=== PATIENT | female | born 2000 | race Caucasian/White ===

== ENCOUNTER 2020-05-26 09:56 | Outpatient (REF) | payer MEDICAID, SELFPAY | END 2020-05-26 09:57 | disposition home or self-care (01) | LOC: HO.LAB 09:56 | PROVIDERS: PCP Pediatrics; Visit Provider Internal Medicine | DX: Z20.828 Contact with and (suspected) exposure to other viral communicable diseases (principal) | CPT/HCPCS: 36415; C9803; U0003 ==

== ENCOUNTER 2020-11-30 12:55 | Emergency (ER) | payer MEDICAID, SELFPAY ==
[2020-11-30 13:36] VITALS: BP 134/77; PULSE 86; RESP 18; TEMP 36.7; O2SAT 99; BMI 16.7
[2020-11-30 15:01] LABS: Glucose Urine UA NEG (NEG); Leukocyte Esterase Urine NEG (NEG); Nitrite Urine NEG (NEG); PH 7.5 (5.0-8.0); Specific Gravity - Urine 1.015 (1.005-1.025); Urine Blood 3+ (NEG); Urine Ketones NEG (NEG); Urine Protein 1+ MG/DL (NEG-TRACE)
[2020-11-30 15:02] LABS: Appearance Urine HAZY; Color Urine YELLOW
[2020-11-30 15:03] LABS: UPreg QC Valid YES; Urine Pregnancy NEGATIVE (NEGATIVE)
[2020-11-30 15:09] LABS: Bacteria Urine TRACE /LPF; Squamous Epithelial Cell Urine TRACE /LPF; WBC Urine 0 /HPF (0-4)
--- NOTE | 2020-11-30 15:13 | ED.GENADULT ---
HPI - General Adult General Chief complaint: Abdominal Pain Stated complaint: Vomittig/Nausea/Dizziness Time Seen by Provider: 11/30/20 14:06 Source: patient Mode of arrival: ambulatory Limitations: no limitations History of Present Illness HPI narrative: 20-year-old female with nonsignificant past medical history presents to the emergency department with increased urinary frequency and low back pain over the last week. Patient denies any burning with urination but states she has been going to the bathroom almost every hour. Is currently on her. Denies any abnormal vaginal discharge denies any abdominal pain. Does admit to mild nausea but denies vomiting or diarrhea. Denies cough chest pain or shortness of breath. Due to concern she felt she needed to be seen. Related Data Allergies Allergy/AdvReac Type Severity Reaction Status Date / Time tree nut Allergy Severe Anaphylaxis Verified 11/30/20 13:35 Review of Systems Review of Systems: Constitutional : No Weight loss, No Fever, No Chills, No Night Sweats, No Fatigue, No Malaise ENT/Mouth : No Hearing loss, No Ear Pain, No Nasal Congestion, No Sinus Pain, No Hoarseness, No sore throat, No Rhinorrhea, No Swallowing Difficulty Eyes: No Eye Pain, No Swelling, No Redness, No Foreign Body, No Discharge, No Vision Changes Cardiovascular : No Chest Pain, No SOB, No Dyspnea on Exertion, No Orthopnea, No Edema, No Palpitations Respiratory : No Cough, No Sputum, No Wheezing, No Smoke Exposure, No Dyspnea Gastrointestinal : + Nausea, No Vomiting, No Diarrhea, No Constipation, No abdominal Pain, No Hematochezia, No Melena Genitourinary : no irregular bleeding, No Dysuria, + Urinary Frequency, No Hematuria, No Urinary Incontinence, No Urgency, No Flank Pain, No Urinary Flow Changes, No Hesitancy Musculoskeletal : No joint pain, No Myalgias, No Joint Swelling, + low back pain Skin : No Skin Lesions, No rash Neuro : No Weakness, No Numbness, No Paresthesias, No Loss of Consciousness, No Dizziness, No Headache Psych : No Anxiety/Panic, No Depression, No SI/HI/AH/VH, No Social Issues, Heme/Lymph: No Bruising, No Bleeding,No Lymphadenopathy Endocrine : No Polyuria, No Polydipsia, No Temperature Intolerance PMFSH Past Medical History Attestation statement: The following information was validated with the patient. Source: old records reviewed and obtained from family Social History Social History Advance Directives: No Advance Directives Information Provided: No Patient : No Physical Exam Vital Signs: Vital Signs: Last Vital Signs Temp 98.1 F 11/30/20 15:54 Pulse 61 11/30/20 15:54 Resp 16 11/30/20 15:54 BP 122/75 11/30/20 15:54 Pulse Ox 95 11/30/20 15:54 Body Mass Index 16.7 vital signs have been reviewed as normal and appeared to be correct. Blood pressure normal. Heart rate normal. Respiration rate normal. Temperature normal. Oxygen saturation normal. Appearance: Alert. Oriented X3. No acute distress. Head: Normal external exam. Normocephalic. Atraumatic. No Parker signs noted. No raccoon eyes noted Eyes: Conjunctiva and sclera normal. ENT: EAC normal. Moist mucous membranes. No drooling noted. No muffled voice noted. Neck: Normal inspection. Neck supple. FROM. No meningeal signs. CVS: Pulses normal throughout. Respiratory: No respiratory distress. Painless inspiration. No accessory muscle usage noted Abdomen: No visible injury noted. soft nondistended nontender Back: Full range of motion noted. no reproducible pain to palpation full range of motion no CVA tenderness Skin: Skin warm and dry. Normal skin color. Normal skin turgor. Extremities: No lower extremity edema. Extremities exhibit normal range of motion. Neuro: Oriented X 3. No motor deficit. No sensory deficit. Course Reevaluation(s) Reevaluation #1: Patient without signs of acute infection is not will discharge home with close outpatient follow-up and strict return precautions. Will obtain a POC glucose to ensure the absence of hyperglycemia that may be causing urinary frequency. Glucose of 80. as soon as patient saw her own blood she started to feel dizzy she tried to ambulate did not pass out sat on the ground. Will obtain EKG to ensure the absence of acute arrhythmia will repeat vitals feel that this is likely secondary to vasovagal secondary to seeing her own blood. Will provide [place] cold washcloth and continue to monitor pending discharge. EKG within normal limits, repeat labs normal. Patient tolerated PO, feel d/c is safe with close PCP FU. Medical Decision Making MDM Narrative Medical decision making narrative: patient's vital signs are stable and she is afebrile. Patient presenting to the emergency department with mild low back pain as well as urinary frequency over the last week concern for UTI. Patient has her period currently. \However will test for . Abdomen soft nondistended nontender no acute concern for intra-abdominal pathology. No flank pain no acute concern for renal stone. Patient denies any vaginal discharge or pain with intercourse no acute concern for STIs. Will continue to monitor pending UA patient is stable. Lab Data Labs: Lab Results 11/30/20 11/30/20 11/30/20 Range/Units 14:52 14:52 15:32 POC Glucose 80 (60-115) mg/dL Urine Color YELLOW Urine Appearance HAZY Urine pH 7.5 (5.0-8.0) Ur Specific [place] 1.015 (1.005-1.025) Urine Protein 1+ H (NEG-TRACE) MG/DL Urine Glucose (UA) NEG (NEG) MG/DL Urine Ketones NEG (NEG) MG/DL Urine Blood 3+ H (NEG) Urine Nitrite NEG (NEG) Ur Leukocyte Esterase NEG (NEG) Urine RBC 76-150 H (0) /HPF Urine WBC 0 (0-4) /HPF Ur Squamous Epith Cells TRACE /LPF Urine Bacteria TRACE /LPF Urine Test NEGATIVE (NEGATIVE) Discharge Plan Discharge Clinical Impression: Urinary frequency Patient Disposition: Home, Self-Care Instructions: Urinary Urgency and Frequency (DC) Additional Instructions: A urine sample was tested today and was normal no signs of infection you are not is uncertain what is causing her symptoms and important you continue to follow-up with your doctor. Interventions: ED Discharge Assessment Last Done: 11/30/20 16:32 Discharge Date/Time: 11/30/20 16:33 Print Language: Turkish
--- NOTE | 2020-11-30 15:44 | ECG_ITS ---
Test Reason : ALMOST PASS OUT Blood Pressure : / mmHG Vent. Rate : 052 BPM Atrial Rate : 052 BPM P-R Int : 138 ms QRS Dur : 072 ms QT Int : 398 ms P-R-T Axes : 042 048 065 degrees QTc Int : 370 ms Sinus bradycardia with Premature atrial complexes Otherwise normal ECG No previous ECGs available Referred By: Yenifer Kan Electronically Signed By:Paxton Ochoa
--- NOTE | 2020-11-30 15:52 | PC.NURSE ---
pt found on floor outside [facility], pt states she saw her own blood after her poc and felt weak. staff who witnessed fall describes a controlled action ending in pt laying on floor. pac saverese aware.
[2020-11-30 15:54] VITALS: BP 122/75; PULSE 61; RESP 16; TEMP 36.7; O2SAT 95
[2020-11-30 16:03] LABS: Glucose, Whole Blood 80 mg/dL (60-115)
== END 2020-11-30 16:33 | disposition home or self-care (01) ==
PROVIDERS: Physician Assistant; Emergency Provider Emergency Medicine
DX: R35.0 Frequency of micturition (principal); M54.5 Low back pain
CPT/HCPCS: 81001; 81003; 81025; 82947; 93005; 99283

== ENCOUNTER 2021-02-21 12:22 | Outpatient (REF) | payer MEDICAID, SELFPAY | END 2021-02-21 12:23 | disposition home or self-care (01) | LOC: HO.LAB 12:22 | PROVIDERS: Visit Provider Internal Medicine | DX: Z20.822 Contact with and (suspected) exposure to COVID-19 (principal) | CPT/HCPCS: U0003; U0005 ==

== ENCOUNTER 2023-01-15 16:23 | Outpatient (REF) | payer MEDICAID, SELFPAY ==
[2023-01-16 09:28] LABS: BV Int Neg Control Negative (Negative); BV Int Pos Control Positive (Positive)
== END 2023-01-15 16:24 | disposition home or self-care (01) ==
LOC: HO.HHCLNP 16:23
PROVIDERS: Visit Provider Advanced Practice Midwife
DX: N89.8 Other specified noninflammatory disorders of vagina (principal)
CPT/HCPCS: 87480; 87510; 87660

== ENCOUNTER 2023-01-31 | Outpatient (REF) | payer MEDICAID, SELFPAY ==
[2023-02-01 16:55] LABS: CT PCR NOT DETECTED (Not Detect.); NG PCR NOT DETECTED (Not Detect.)
[2023-02-02 11:38] LABS: BV Int Neg Control Negative (Negative); BV Int Pos Control Positive (Positive)
== END 2023-01-31 00:01 | disposition home or self-care (01) ==
LOC: HO.HHCLNP
PROVIDERS: Visit Provider Emergency Medicine
DX: R30.0 Dysuria (principal); Z20.2 Contact with and (suspected) exposure to infections with a predominantly sexual mode of transmission
CPT/HCPCS: 0353U; 87480; 87510; 87660

== ENCOUNTER 2023-01-31 | Outpatient (REF) | payer MEDICAID, SELFPAY | END 2023-01-31 00:01 | disposition home or self-care (01) | LOC: HO.HHCLNP | PROVIDERS: Visit Provider Emergency Medicine | DX: R30.0 Dysuria (principal) | CPT/HCPCS: 87086; 87088; 87186 ==

== ENCOUNTER 2023-09-17 19:39 | Outpatient (REF) | payer MEDICAID, SELFPAY ==
[2023-09-19 20:28] LABS: C. trachomatis RNA TMA NOT DETECTED (NOT DETECTED); Candida glabrata RNA NOT DETECTED (NOT DETECTED); Candida species RNA DETECTED (NOT DETECTED); N. gonorrhoeae RNA TMA NOT DETECTED (NOT DETECTED); Trichomonas vaginalis RNA NOT DETECTED (NOT DETECTED)
== END 2023-09-17 19:40 | disposition home or self-care (01) ==
LOC: HO.HHCLNP 19:39
PROVIDERS: Visit Provider Internal Medicine
DX: R30.0 Dysuria (principal)
CPT/HCPCS: 36415; 81513; 87086; 87088; 87186; 87481; 87491; 87591; 87661

== ENCOUNTER 2024-01-16 10:25 | Outpatient (REF) | payer MEDICAID, SELFPAY ==
[2024-01-16 15:22] LABS: CT PCR NOT DETECTED (Not Detect.); NG PCR NOT DETECTED (Not Detect.)
== END 2024-01-16 10:26 | disposition home or self-care (01) ==
LOC: HO.HHCL 10:25
PROVIDERS: Visit Provider General Practice
DX: R39.9 Unspecified symptoms and signs involving the genitourinary system (principal); Z11.3 Encounter for screening for infections with a predominantly sexual mode of transmission; R63.6 Underweight
CPT/HCPCS: 87086; 87088; 87186; 87491; 87591

== ENCOUNTER 2024-04-04 18:31 | Outpatient (REF) | payer MEDICAID, SELFPAY ==
[2024-04-05 12:24] LABS: Bacterial Vaginosis PCR NEGATIVE (Negative); Candida Group PCR NOT DETECTED (Not Detect); Candida glab krusei PCR NOT DETECTED (Not Detect); Trichomonas vaginalis PCR NOT DETECTED (Not Detect)
[2024-04-05 13:42] LABS: CT PCR NOT DETECTED (Not Detect.); NG PCR NOT DETECTED (Not Detect.)
== END 2024-04-04 18:32 | disposition home or self-care (01) ==
LOC: HO.HHCLNP 18:31
PROVIDERS: Visit Provider General Practice
DX: Z12.4 Encounter for screening for malignant neoplasm of cervix (principal)
CPT/HCPCS: 0352U; 87491; 87591; 88175

== ENCOUNTER 2024-08-13 | Outpatient (REF) | payer MEDICAID, SELFPAY ==
[2024-08-14 13:03] LABS: Bacterial Vaginosis PCR POSITIVE (Negative); Candida Group PCR NOT DETECTED (Not Detect); Candida glab krusei PCR NOT DETECTED (Not Detect); Trichomonas vaginalis PCR NOT DETECTED (Not Detect)
== END 2024-08-13 00:01 | disposition home or self-care (01) ==
LOC: HO.HHCLNP
PROVIDERS: Visit Provider General Practice
DX: N89.8 Other specified noninflammatory disorders of vagina (principal)
CPT/HCPCS: 81515

== ENCOUNTER 2024-09-18 08:05 | Emergency (ER) | payer MEDICAID, SELFPAY ==
--- NOTE | ~2024-09-18 | XR_ITS ---
EXAMINATION: XR ANKLE 3 OR MORE VIEWS LEFT HISTORY: left ankle pain COMPARISON: There are no prior studies available for comparison. FINDINGS: Four views of the left ankle are submitted. Osseous mineralization is normal. There is no fracture or dislocation. The joint spaces are preserved. The soft tissues are unremarkable. XR/XR ankle LT min 3V IMPRESSION: Unremarkable examination of the left ankle. Electronically signed by: Tho Uribe MD 09/18/2024 08:34 AM EDT
[2024-09-18 08:09] VITALS: BP 106/66; PULSE 74; RESP 16; TEMP 36.4; O2SAT 100; BMI 16.8
--- NOTE | 2024-09-18 08:46 | ED_ITS ---
HPI - General Adult General Chief complaint: Extremity Injury, Lower Stated complaint: L foot inj Time Seen by Provider: 09/18/24 08:37 Source: patient Mode of arrival: ambulatory Limitations: no limitations History of Present Illness HPI narrative: This is an otherwise healthy 23-year-old woman who presents for evaluation of left ankle pain. Patient reports that she was on her scooter yesterday and fell rolling her ankle. She reports difficulty walking due to pain in her ankle. She states no loss of sensation or paresthesias in her leg. She states that she did hit her head. She states no loss of consciousness. She states taking no blood thinning medications. She states no headache or neck pain. She states no extremity weakness. She States no vision changes. She states no nausea or vomiting. She states no chest pain, back pain, abdominal pain or dyspnea. She states no upper extremity pain. Related Data Previous Rx's ?Medication ?Instructions ?Recorded acetaminophen 325 mg tablet 975 mg (3 x 325 mg) PO Q8H PRN 09/18/24 (Tylenol) pain #30 tabs ibuprofen 600 mg tablet 600 mg PO Q6H PRN pain #30 tabs 09/18/24 Allergies Allergy/AdvReac Type Severity Reaction Status Date / Time tree nut Allergy Severe Anaphylaxis Verified 09/18/24 08:11 Review of Systems Review of Systems: ROS as per [facility] Social History Social History Advance Directives: No Advance Directives Information Provided: Yes Do you have a plan to hurt others: No Plan Physical Exam ED Vital Signs: Vital Signs - 24 hr 09/18/24 08:09 Temperature 97.6 F Pulse Rate 74 Respiratory Rate 16 Blood Pressure 106/66 Pulse Oximetry 100 Oxygen Delivery Method Room Air BMI result Body Mass Index 16.8 Gen: NAD, AOx3 HEENT: NC, contusion right forehead, EOMI, normal conjunctiva, no periorbital or postauricular ecchymosis, no hemotympanum CV: RRR, 2+ bilateral radial and DP/PT pulses Pulm: CTAB, no increased work of breathing GI: Soft, NTND, no rebound, guarding or rigidity MSK: No midline vertebral tenderness to palpation, full range of motion with neck flexion/extension and lateral 45 degree rotation, no extremity deformity, bilateral upper and lower extremity compartments are soft with intact overlying skin, tenderness to palpation to the left anterior talofibular ligament with mild edema Neuro: CN 2-12 grossly intact, no sensory or motor deficits Skin: Warm, dry Medical Decision Making Medical Decision Making MDM Narrative: Differential diagnosis includes, but is not limited to contusion, strain, sprain, fracture. Patient is afebrile and hemodynamically stable on room air. Exam is benign and reassuring. I reviewed x-rays as below. Patient was treated supportively with Aircast and crutches. Patient is not less than 16 years of age, on blood thinners and did not have seizure after the injury. Patient has a GCS of 15 2 hours post-injury. Patient does not have a suspect open or depressed skull fracture, signs of basilar skull fracture, greater than or equal to 2 episodes of vomiting and is not greater than or equal to 65 years of age. Patient does not have retrograde amnesia to the event greater than or equal to 30 minutes or a dangerous mechanism. For this reason, CT imaging of the head/brain is not obtained. Patient is not greater than or equal to 65 years of age, does not have extremity paresthesias or a dangerous mechanism of injury. Patient has low risk factor (such as sitting position in the ED, ambulatory at any time, no neck pain, no midline tenderness). Patient is able to actively rotate neck 45 degrees left and right. For these reasons, CT imaging of the cervical spine is not obtained.? On re-examination, patient is well-appearing and in no acute distress. There is no indication for further emergent evaluation in this otherwise well-appearing patient as above. ?Patient is provided written and verbal instructions, educational materials, recommendations for outpatient follow-up, orthopedic surgery referral, prescription for ibuprofen and Tylenol, strict return precautions and teach back is performed. ?Patient states understanding and agreement with plan of care. ?Patient is discharged home in stable and improved condition. Admission/Observation Consideration of admission/observation: Escalation of care including admission/observation considered Independent Interpretation I performed an independent interpretation of an: Plain X-Ray Interpretation: I independently reviewed the patient's x-ray of the left ankle, which demonstr ates no acute fracture. Radiology Impression Discussion of test interpretation with radiology: I have reviewed the radiologist's reading. Radiologist Impression: XR/XR ankle LT min 3V IMPRESSION: Unremarkable examination of the left ankle. Electronically signed by: Tho Uribe MD 09/18/2024 08:34 AM EDT RP Dictated By: Tho Uribe MD Signed By: <Electronically signed by Tho Uribe MD in OV> 09/18/24 0834 Discharge Plan Discharge Clinical Impression: Ankle sprain and strain Patient Disposition: Home, Self-Care Instructions: Ankle Sprain (ED), R.I.C.E. Treatment (ED) Additional Instructions: You were evaluated in the emergency room for a left ankle injury. Your ankle x-rays showed no broken or dislocated bones. You are given a prescription for Tylenol and Ibuprofen. Please take as directed. Please always take Ibuprofen with food and water. You are given cruthces and an aircast. Please continue to use and slowly increase the weight that you can apply on your injured leg as tolerated. Be care to not overdo it too quickly. Please follow up with Orthopedic surgery in the next 1-2 weeks if your symptoms are not improving. Return to the emergency room with any new concerns, symptoms or injuries. Prescriptions: New ibuprofen 600 mg tablet 600 mg PO Q6H PRN (Reason: pain) Qty: 30 0RF acetaminophen [Tylenol] 325 mg tablet 975 mg PO Q8H PRN (Reason: pain) Qty: 30 0RF Referrals: [facility] [place] [facility] [Provider Group] Print Language: Japanese
--- OUTSIDE RECORDS SUMMARY | 2024-09-18 08:56 | XMS_ITS | Encounter Summary ---
Author Organization [employer] Address [address] [place] [address] Care Team Providers Care Pst Supervisor Name Role Phone Allyson Farooq MD Primary Care Provider [phone] Reason for Visit * Reason Onset Date Comments rs appt 03/13/2023 Encounter Details Date Type Department Care Team ([facility] st Contact Info) Description 03/13/2023 Telephone [facility] [address] [place] [address] Soto Keith, DMD [address] [place] [address] rs appt Social History Tobacco Use Types Packs/Day Years Used Date Smoking Tobacco: Former Passive Smoke Exposure: Never Smokeless Tobacco: Never Alcohol Use Standard Drinks/Week Comments Not Currently 0 (1 standard drink = 0.6 oz pur e alcohol) Housing Stability Answer Date Recorded What is your housing situation today? I have tamera ricardo 03/13/[address] you li ve. Do you have problems with any of the following? None of the above 03/13/2023 Food Insecurity Answer Date Recorded Within the past 12 months, y ou worried that your food would run out before you got money to buy more: Never True 03/13/2023 Within the past 12 months,th e food you bought just didn't last and you didn't have enough money to get more: Never True Transportation Answer Date Recorded In the past 12 months, has l ack of transportation kept you from medical appts, meetings, work or from getting things needed for daily living? No 03/13/2023 Utilities Answer Date Recorded In the past 12 months, has t he electric, gas, oil or water company threatened to shut off services in your home? No 03/13/2023 Depression Answer Date Recorded Patient Health Questionnaire-2 Score 0 09/08/2022 Comments No Sex and Gender Information Value Date Recorded Sex Assigned at Female 03/20/2022 10:22 AM EDT Legal Sex Female 10:22 AM EDT Gender Identity Female 03/20/2022 10:22 AM EDT Sexual Orientation Straight 08/04/2022 3: 24 PM EDT documented as of this encounter Miscellaneous Notes * Telephone Encounter - Vero Rivera - 03/13/2023 1:26 PM EDT Patient cannot make it in for 9:30 appt tomorrow. Looking to see if she can comm in the afternoon. If not she is willing to take a day. Please reach out to the patient DR documented in this encounter Plan of Treatment Not on file documented as of this encounter Visit Diagnoses Not on filedocumented in this encounter Care Teams Pst Supervisor Relationship Specialty Start Date End Date Allyson Farooq MD [address] [place] [id number] PCP - General Family Medicine 07/23/20 documented as of this encounter
--- OUTSIDE RECORDS SUMMARY | 2024-09-18 08:56 | XMS_ITS | Encounter Summary ---
Author Organization [facility] [facility] Address [address] [place] [address] Care Team Providers Care Lobsterman Name Role Phone Allyson Farooq MD Primary Care Provider [phone] Encounter Details Date Type Department Care Team (Latest Contact Info) Description 09/01/2021 Abstract [facility] CONVERSIONS Dental, Provider, DDS Social History Tobacco Use Types Packs/Day Years Used Date Smoking Tobacco: Never Assessed Comments Unknown Sex and Gender Information Value Date Recorded Sex Assigned at Female 03/20/2022 10:22 AM EDT Legal Sex Female 10:22 AM EDT Gender Identity Female 03/20/2022 10:22 AM EDT Sexual Orientation Straight 08/04/2022 3: 24 PM EDT documented as of this encounter Plan of Treatment Not on file documented as of this encounter Visit Diagnoses Not on filedocumented in this encounter Care Teams Lobsterman Relationship Specialty Start Date End Date Allyson Farooq MD [address] [place] [address] PCP - General Family Medicine 07/23/20 documented as of this encounter
--- OUTSIDE RECORDS SUMMARY | 2024-09-18 08:56 | XMS_ITS | Encounter Summary ---
Author Organization [employer] Address [address] [place] [address] Care Team Providers Care Stem Frazer Name Role Phone Allyson Farooq MD Primary Care Provider [phone] Encounter Details Date Type Department Care Team (Late st Contact Info) Description 09/18/2024 Orders Only [facility] External Provider, [facility] Social History Tobacco Use Types Packs/Day Years Used Date Smoking Tobacco: Former Passive Smoke Exposure: Never Smokeless Tobacco: Never Alcohol Use Standard Drinks/Week Comments Not Currently 0 (1 standard drink = 0.6 oz pur e alcohol) Alcohol Answer Date Recorded How often do you have a drink containing alcohol ? 0 04/08/2024 How many drinks containing a lcohol do you have on a typical day when you are drinking? 0 04/08/2024 How often do you have six or more drinks on one occasion? 0 04/08/2024 Depression Answer Date Recorded Patient Health Questionnaire-9 Score 20 07/16/2024 Patient Health Questionnaire-9 Score 20 07/16/2024 Last PHQ-9: Questionnaire Data Not on file 0 07/16/2024 Housing Stability Answer Date Recorded What is your housing situation today? I have tamera ricardo 04/08/[address] you li ve. Do you have problems with any of the following? None of the above 04/08/2024 Food Insecurity Answer Date Recorded Within the past 12 months, y ou worried that your food would run out before you got money to buy more: Never True 04/08/2024 Within the past 12 months,th e food you bought just didn't last and you didn't have enough money to get more: Never True Transportation Answer Date Recorded In the past 12 months, has l ack of transportation kept you from medical appts, meetings, work or from getting things needed for daily living? No 04/08/2024 Utilities Answer Date Recorded In the past 12 months, has t he electric, gas, oil or water company threatened to shut off services in your home? No 04/08/2024 Depression Answer Date Recorded Patient Health Questionnaire-2 Score 4 07/16/2024 Internet Access Answer Date Recorded Internet Access Q1 Yes 04/08/2024 Internet Access Q2 Not on file 04/08/2024 Comments No Sex and Gender Information Value Date Recorded Sex Assigned at Female 03/20/2022 10:22 AM EDT Legal Sex Female 10:22 AM EDT Gender Identity Female 03/20/2022 10:22 AM EDT Sexual Orientation Straight 08/04/2022 3: 24 PM EDT documented as of this encounter Plan of Treatment Not on file documented as of this encounter Procedures Procedure Name Priority Date/Time Associated Diagnosis Comments XR ANKLE 3+ VIEWS LEFT Routine 09/18/2024 8:25 AM EDT documented in this encounter Results * XR Ankle 3+ Views Left (09/18/2024 8:25 AM EDT) Anatomical Region Laterality Modality Lower Extremities, Ankle Left Radiogr aphic Imaging 09/18/2024 8:25 AM EDT Narrative 09/18/2024 8:37 AM EDT ? [facility] ?[address] ?[place] [address] ?XRay Report ? Signed ? Patient: Velásquez,Leislanis ?MR#: [id number] ?? [id number] ? : 2000 ?Acct:[id number] ? Age/Sex: 23 / F ?ADM Date: 09/18/24 ? Loc: HO.ED ? Attending Dr: ? Ordering Physician: Generic ED Physician ?? Date of Service: 09/18/24 ?? Procedure(s): XR ankle LT min 3V ?? Accession Number(s): [id number] ? cc: Generic ED Physician; [facility] ? EXAMINATION: ??XR ANKLE 3 OR MORE VIEWS LEFT ? HISTORY: left ankle pain ? COMPARISON: There are no prior studies available for comparison. ? FINDINGS: ? Four views of the left ankle are submitted. ??Osseous mineralization is ?? normal. ??There is no fracture or dislocation. ??The joint spaces are ?? preserved. ??The soft tissues are unremarkable. ? XR/XR ankle LT min 3V ?? IMPRESSION: ? Unremarkable examination of the left ankle. ? Electronically signed by: ??Tho Uribe MD ??09/18/2024 08:34 AM EDT ? Dictated By: ?Tho Uribe MD ? Signed By: ?<Electronically signed by Tho Uribe MD in OV> ?09/18/24 0834 ? DD/ 4 ? TD/TT: 09/18/24 0831 ? Online Merchandising Specialist: ? Procedure Note [email or web address], Image - 09/18/2024 [place] [address] XRay Report Signed Patient: Sarah Velásquez#: [id number] : 2000Acct:[id number] Age/Sex: 23 FADM Date: 09/18/24 Loc: HO.ED Attending Dr: Ordering Physician: Generic ED Physician Date of Service: 09/18/24 Procedure(s): XR ankle LT min 3V Accession Number(s): [id number] cc: [facility] ED Physician; [facility] EXAMINATION: XR ANKLE 3 OR MORE VIEWS LEFT HISTORY: left ankle pain COMPARISON: There are no prior studies available for comparison. FINDINGS: Four views of the left ankle are submitted. Osseous mineralization is normal. There is no fracture or dislocation. The joint spaces are preserved. The soft tissues are unremarkable. XR/XR ankle LT min 3V IMPRESSION: Unremarkable examination of the left ankle. Electronically signed by: Tho Uribe MD 09/18/2024 08:34 AM EDT Dictated By: Tho Uribe MD Signed By: <Electronically signed by Tho Uribe MD in OV> 09/18/24833 DD/ 4 TD/TT: 09/18/24830 Online Merchandising Specialist: [facility] External Provider IMG XR PROCEDURES Final Result documented in this encounter Visit Diagnoses Not on filedocumented in this encounter Additional Health Concerns Assessment Noted Time PHQ-9 Depression Total Score: 20 025 3:13 PM EST documented as of this encounter Care Teams Stem Frazer Relationship Specialty Start Date End Date Allyson Farooq MD [address] [place] [address] PCP - General Family Medicine 07/23/20 documented as of this encounter
--- OUTSIDE RECORDS SUMMARY | 2024-09-18 08:56 | XMS_ITS | Clinical Summary ---
Author Organization [employer] Address [address] [facility] 7t [place] [address] Care Team Providers Care Student Success Counselor Name Role Phone Allyson Farooq MD Primary Care Provider [phone] Allergies Active Allergy Reactions Criticality Noted Date Comments Corylus 06/23/2019 Peanut-Containing Drug Products 08/20 Medications * This document contains information received from the source organization and may not represent a complete record from that organization. albuterol (ProAir HFA) 108 (90 Base) MCG/ACT inhaler inhale 2 puff by inhalation route via spacer every 4 - 6 hours as needed; use with spacer 2 Active fluocinolone (Grabill-Smoothe/ FS Body) 0.01 % external oil Apply topically. 8 Active EPINEPHrine (EpiPen 2-Juan José) 0.3 MG/0.3ML injection syringe Use as directed for anaphylaxis prn 8 Active mirtazapine (Remeron) 15 MG tablet Take 1 tablet (15 mg) by mouth at bedtime. For anxiety and appetite 90 tablet 3 4 04/03/20 25 Active ibuprofen 600 MG tablet TAKE 1 TABLET BY MOUTH FOUR TIMES DAILY WITH MEALS NEEDED 5 Active escitalopram (Lexapro) 5 MG tabletIndicatio ns:Moderate episode of recurrent major depressive disorder (CMS/HCC),Anxie ty Take 1 tablet (5 mg) by mouth Once per day. 30 tablet 2 5 10/15/19 25 Active hydrOXYzine HCl (Atarax) 10 MG tablet Take 1 tablet (10 mg) by mouth if needed each day for anxiety (panic attack). 30 tablet 3 5 12/13/19 25 Active Multiple Vitamins-Minera ls (Multivitamin Women) tablet Take 1 tablet by mouth Once daily. 90 tablet 3 5 Active metroNIDAZOLE (Flagyl) 500 MG tabletIndicatio ns:Bacterial vaginosis Take 1 tablet (500 mg) by mouth 2 times daily for 7 days. 14 tablet 5 08/23/19 25 Active Problems Problem Noted Date Diagnosed Date Dietary counseling 07/17/2024 Assessment & Plan (07/17/2024 2:42 PM EST): Dietary Recommendations: Fruits, vegetables, whole grains, high protein foods, and fat-free or low-fat dairy products are healthy choices. Eat different types of protein foods in your diet. This can include seafood, lean meats, poultry, beans, peas, lentils, nuts, seeds, soy products, and eggs. Limit foods and beverages higher in added sugars, saturated fat, and sodium. Exercise counseling 07/17/2024 Assessment & Plan (07/17/2024 2:43 PM EST): Encouraged 30 minutes aerobic exercise daily including daily walks Anxiety 07/16/2024 Assessment & Plan (08/14/2024 3:39 PM EDT): Continue Mirtzapine at night, if this is not helpful enough, start an SSRI with less sedation, started with lexapro 10mg Discussed side effects of med Would need to take Lexparo at morning Assessment & Plan (07/17/2024 2:45 PM EST): Anxiety/depression not improved with mirtazapine Decided to start an SSRI with less sedation, started with lexapro 10mg Discussed side effects of med Plan to f/u in 1 month with PCP Recurrent major depressive disorder 05/19/2024 Assessment & Plan (07/18/2024 1:20 PM EST): During IBH Consult Leislanis presenting with depressed mood, Tearful, crying spells , hopelessness, irritable mood, loss of interests/pleasure , sense of isolation/loneliness , isolating, change in appetite or weight reduce appetite, changes in sleep difficulty falling asleep, psychomotor retardation, fatigue/loss of energy, worthlessness, inappropriate/excessive guilt , difficulty concentrating, indecisiveness; for a period of 18+ mo, for most or all symptoms in the context of unable to identify significant stressors. Patient carries a diagnosis for anxiety per her medical record. Today she reported presenting concerns associated with a depressive disorder. Pt is experiencing hopelessness, severe anhedonia and loss of motivation. No specific trigger associated with symptoms. Patient reports housing might be causing some stress. She lives alone and finds it difficult to share her emotions with others. clinician engaged patient with active/reflective listening. Reviewed and assessed for risk, current stressors and protective factors. Pt was referred with Eloy Oquendo, she reports starting services but missing follow-up appointments. Pt would like to reconnect with [facility] psych provider to continue with services. She is currently seeing a therapist in [facility]. Assessment & Plan (07/16/2024 4:21 PM EST): No SI/HI at this time in office consult complete, plan to f/u with Eloy (internal provider) Plan to start lexapro 10 mg daily medication Underweight in childhood with BMI < 5th percenti le 01/16/2024 Assessment & Plan (01/16/2024 10:18 AM EDT): TSH, CBC, ESR, CMP Encounter for screening exam ination for sexually transmitted infection 01/16/2024 Amenorrhea, secondary 09/08/2022 Assessment & Plan (09/08/2022 1:35 PM EDT): R/o today's urine test is negative order serum hcg, counseled her to repeat it in two weeks if still negative and she hasn't had menstrual bleeding we discussed about POC with either one of the options including keeping or terminating pregancy. Pt will discuss with partner. FU with results next week. I will give a prescription for XXXX to take prior to blood draw PRN anxiety. Anxiety attack 09/08/2022 Assessment & Plan (09/08/2022 1:36 PM EDT): reportedly with blood draw and issues related with needles use XXXX prior to blood draw and FU with PCP Low grade squamous intraepit helial lesion (LGSIL) on cervicovaginal cytologic smear 03/07/2022 Assessment & Plan (01/16/2024 10:57 AM EDT): Will schedule for pap with me at next available Mild intermittent asthma 04/02/2017 Hypermetropia 12/03/2015 Benign nevus 07/31/2014 Developmental academic disorder 11/25/2012 Encounters * This document contains information received from the source organization and may not represent a complete record from that organization. Date Type Department Care Team Description 09/18/2024 Orders Only [facility] External Provider, [facility] 08/19/[address] [address] Allyson Farooq MD Medication Problem 08/14/[address] [address] Caren Jacob RN Bacterial vaginosis 08/13/2024 3:45 PM EDT Office Visit [address] [address] Allyson Farooq MD Vaginal discharge (Primary Dx); Severe episode of recurrent major depressive disorder, without psychotic features (CMS/HCC); Anxiety 08/13/2024 Travel 08/01/2024 Population Health Risk Score Community [facility] ([facility]) Department [address] [place] [phone] Provider, Population Health Generic 07/21/[address] [address] Allyson Farooq MD Nurse Triage 07/16/2024 2:45 PM EST Office Visit [address] [address] Fiona Groves CNP Moderate episode of recurrent major depressive disorder (CMS/HCC) (Primary Dx); Anxiety; Dietary counseling; Exercise counseling 07/16/2024 Travel 07/16/[address] [address] Allyson Farooq MD Chart Prep 07/15/[address] [address] Allyson Farooq MD Nurse Triage from Last 3 Months Immunizations Name Administration Dates Next Due DTaP 03/01/2004, 2,05/28/2000,03/21,01/25/2000 HPV, Quadrivalent 07/03/2014,11/25/2012,03/06/20 11 Hep A, ped/adol, 2 dose 07/26/2016,01/12/2016 Hep B, Adolescent or Pediatric 08/24/2000,1999,1999 Hib (HbOC) 02/05/2001, 1,03/21/2000,01/24 IPV 03/01/2004, 2,03/21/2000,01/24 Influenza injectable quadriv alent preservative free 04/08/2020,07/03/2014 Influenza live intranasal trivalent 04/14/2013,1 Influenza, IIV3, injectable 07/21/2008,1 ,05/17/2006,05/24 Influenza, live, intranasal 04/14/2013, 1 MMR 03/01/2004,04/19/2001 Meningococcal MCV4P ACYW-135 01/12/2016,03/06/20 11 Pneumococcal Conjugate PCV 7 02/05/2001, 05/28/2000,03/21/2000,01/24 Tdap 03/13/2011 Varicella 03/13/2011,02/05/2001 Social History Tobacco Use Types Packs/Day Years Used Date Smoking Tobacco: Former Passive Smoke Exposure: Never Smokeless Tobacco: Never Tobacco Cessation:Counseling Given: Not Answered Alcohol Use Standard Drinks/Week Comments Not Currently [...] Answer Date Recorded Patient Health Questionnaire-9 Score 07/16/2024 Patient Health Questionnaire-9 Score 07/16/2024 Last PHQ-9: Questionnaire Data Not on [...] Orientation Straight 08/04/2022 3: 24 PM EDT Last Filed Vital Signs Vital Sign Reading Time Taken Comments Blood Pressure 118/72 08/13/2024 3:59 PM EDT Pulse 87 08/13/2024 3:59 PM EDT Temperature 36.2 ??C (97.1 ??F) 08/13/2024 3:59 PM ED T Respiratory Rate 18 08/13/2024 3:59 PM EDT Oxygen Saturation 99% 08/13/2024 3:59 PM EDT Inhaled Oxygen Concentration - - Weight 42.3 kg (93 lb 4 oz) 08/13/2024 3:59 PM E DT Height 160 cm (5' 3 ) 08/13/2024 3:59 PM EDT Body Mass Index 16.52 08/13/2024 3:59 PM EDT Plan of Treatment Health Maintenance Due Date Last Done Comments Pneumococcal Vaccine: Pediatrics (0 to 5 Years) and At-Risk Patients (6 to 49) Years) (1 of 2 - PCV) 11/13/2018 02/05/2001, 05/28/2000, 03/21/2000, Additional history exists DTaP/Tdap/Td Vaccines (7 - Td or Tdap) 03/13/2021 03/13/2011, 03/01/2004, 03/24/2002, Additional history exists COVID-19 Vaccine ( - 2023- season) 2024 Influenza Vaccine (#1) 2024 , 07/03/2014, 04/14/2013, Additional history exists Dental Oral Exam 11/04/2024 05/05/2024 Dental Prophylaxis 11/04/2024 05/05/2024, 08/04/2022 Family Planning (PISQ) 04/06/2025 04/06/2024 Alcohol/Substance Use Screening 04/08/2025 04/08/2024 SDOH Screening 04/08/2025 04/08/2024 Dental X-Ray: Bitewings 05/06/2025 05/05/2024, 08/04 Depression Screening 07/16/2025 07/16/2024, 07/16/19 Dental X-Ray: Full Mouth 08/05/2025 08/04/2022 Tobacco Screening 08/14/2025 08/14/2024 Pap Smear 04/04/2027 04/04/2024, 03/01/2022 Zoster Vaccines (1 of 2) 11/13/2049 RSV Patients and Patients Aged 60 years or older (1 - 1-dose 75+ series) 11/13/2074 Hepatitis B Vaccines Completed 08/24/2000, 1999, 1999 HIB Vaccines Completed 02/05/2001, 12/2000, 03/21/2000, Additional history exists IPV Vaccines Completed 03/01/2004, 08/2001, 03/21/2000, Additional history exists HPV Vaccines Completed 07/03/2014, 12/2012, 03/06/2011 Meningococcal Vaccine Completed 01/12/2016, 011 Hepatitis A Vaccines Completed 07/26/2016, 01/12/20 16 HIV Screening Completed 06/23/2019 Hepatitis C Screening Completed 06/23/2019 RSV under 20 months Aged Out No longe r eligible based on patient's age to complete this topic Rotavirus Vaccines Aged Out No longer eligible based on patient's age to complete this topic Procedures Procedure Name Priority Date/Time Associated Diagnosis Comments XR ANKLE 3+ VIEWS LEFT Routine 09/18/2024 8:25 AM EDT BACTERIAL VAGINOSIS PANEL Routine 08/13/2024 4:31 PM EDT Vaginal discharge Full PROPHYLAXIS - ADULT Routine 05/05/2024 9:00 AM EST BITEWINGS - 4 RADIOGRAPHIC IMAGES Routine 05/05/2024 9:00 AM EST PERIODIC ORAL EVALUATION - ESTABLISHED PATIENT Routine 05/05/2024 9:00 AM EST PAP SMEAR Routine 04/04/2024 4:35 PM EST PANORAMIC RADIOGRAPHIC IMAGE Routine 08/04/2022 3:00 PM EDT ZZZ HISTORICAL HEPATITIS C ANTIBODY RFLX Routine 06/23/2019 10:25 AM EST ZZZ HISTORICAL HIV AB/AG Routine 06/23/2019 10:25 AM EST from Last 3 Months or Most Recently Relevant to Health Maintenance Results * XR Ankle 3+ Views Left (09/18/2024 8:25 AM EDT) Anatomical Region Laterality Modality Lower Extremities, Ankle Left Radiogr aphic Imaging 09/18/2024 8:25 AM EDT Narrative 09/18/2024 8:37 AM EDT ? [facility] ?[address] ?[place] [address] ?XRay Report ? Signed ? Patient: Velásquez,Leislanis ?MR#: [id number] ?? [id number] ? : 2000 ?Acct:[id number] ? Age/Sex: 23 / F ?ADM Date: 05/01/25 ? Loc: HO.ED ? Attending Dr: ? Ordering Physician: Generic ED Physician ?? Date of Service: 09/18/24 ?? Procedure(s): XR ankle LT min 3V ?? Accession Number(s): [id number] ? cc: Generic ED Physician; [facility] ? EXAMINATION: ??XR ANKLE 3 OR MORE [...] ??Tho Uribe MD ??09/18/2024 08:34 AM EDT ?? RP ? Dictated By: ?Tho Uribe MD ? Signed By: ?<Electronically signed by Tho Uribe MD in OV> ?09/18/24 0834 ? DD/ 4 ? TD/TT: 09/18/24830 ? Dye Tank Tender: ? Procedure Note Michelle Mckinley - 09/18/[address] [address] XRay Report Signed Patient: Sarah Velásquez#: [id number] : 2000Acct:[id number] Age/Sex: 23 / FADM Date: 09/18/24 Loc: .ED Attending Dr: Ordering Physician: Generic ED Physician Date of Service: 09/18/24 Procedure(s): XR ankle LT min 3V Accession Number(s): [id number] cc: Generic ED Physician; [facility] EXAMINATION: XR ANKLE 3 OR MORE VIEWS [...] signed by Tho Uribe MD in OV> 09/18/24 0834 DD/ 4 TD/TT: 09/18/24 08 Dye Tank Tender: [facility] External Provider IMG XR PROCEDURES Final Result * (ABNORMAL) Bacterial Vaginosis Panel (08/13/2024 4:31 PM EDT) TRICHOMONAS VAGINALIS DETECTION BY PCR NOT DETECTED Not Detect [facility] BACTERIAL VAGINOSIS DETECTION BY PCR POSITIVE(A) Negative [facility] Comment:The BV organism targ ets of the Xpert Xpress MVP test can becommensal in women; Xpert Xpress MVP positive results forbacterial vaginosis should be considered in conjunction withother clinical and patient information to determine thedisease status. Organisms that are not detected by the XpertXpress MVP test have also been reported to be associatedwith BV and aerobic vaginitis.The Xpert Xpress MVP test performance has not been evaluatedin patients under the age of 14. JOCY GROUP DETECTION BY PCR NOT DETECTED Not Detect [facility] Jocy glab krusei PCR NOT DETECTED Not Detect [facility] Swab Vaginal structure / Unknown 08/13/2024 4:31 PM EDT 08/14/2024 11:14 AM EDT Allyson Farooq MD LAB MICROBIOLOGY - GENERAL ORD ERABLES Final Result [facility] [address] [place] [phone] * Pap Smear (04/04/2024 4:35 PM EST) 04/04/2024 4:35 PM EST 04/07/2024 9:25 AM EST Narrative [facility] - 04/23/2024 7:49 AM EST ----- ------- Name: Guille Velásquez ? Age/Sex: 23/F ? : 2000 Unit#: [id number] ?? Attend Dr: Allyson Farooq ?Re04/04/24 ?Status: DEP REF ? Location: HO.HHCLNP ? Disch: ? ----- ------- SPEC : [id number] ?RECD: 04/07/24 ? STATUS: ??SOUT ? REQ NUM: [id number] ? RYDER: 04/04/242 ? SUBM DR: Allyson Farooq ? ENTERED: ??04/07/24 ?SP TYPE: Pap Smr ?OTHR DR: ? ORDERED: ??Pap Smear ? Interpretation ?? Satisfactory for evaluation. ?? Negative for intraepithelial lesion or malignancy. ?? Scant cellularity. ?Clinical Information LMP: 04/03/2024 Previous PAP test: Unknown date/findings Other history:GOPO ? Material Received ?? ThinPrep-Cervical ----- ------- Signed (signature on file) CHANEL Kang (ASCP) 04/23/24 0749 ? ----- ------- ? END OF REPORT ? us Allyson Farooq MD LAB CYTOLOGY ORDERABLES Final Result [facility] [address] [place] [address] [phone] * HEPATITIS C ANTIBODY RFLX (06/23/2019 10:25 AM EST) HEPATITIS C ANTIBODY NON[facility]ACTIVE [facility] Comment: Antibodies to HCV not detected; does not exclude early acute HCV infection. 06/23/2019 10:2 5 AM EST Melody Wilcox DO HISTORICAL/NON ORDERABLE LABS Final Result Performing Organization Address [facility] de Phone Number [facility] [address] * HIV AB/AG (06/23/2019 10:25 AM EST) Pathologist [facility] HIV AG/AB NONREACTIVE NR [facility] Comment: HIV-1 p24 Ag and/or HIV-1/HIV-2 Ab not detected. ?? A test result that is nonreactive does not exclude the possibility of exposure to or infection with HIV-1 and/or HIV-2. Nonreactive results in this assay for individuals with prior exposure to HIV-1 and/or HIV-2 may be due to antigen and antibody levels that are below the limit of detection of this assay. ?? The Roger Color Drum Worker HIV Ag/Ab Combo assay result and supplemental assay results should be interpreted in conjunction with the patient's clinical presentation, history and other laboratory results. ??If the results are inconsistent with clinical evidence, additional testing is suggested to confirm the result. 06/23/2019 10:2 5 AM EST Melody Wilcox DO HISTORICAL/NON ORDERABLE LABS Final Result Performing Organization Address [facility] de Phone Number [facility] [address] from Last 3 Months or Most Recently Relevant to Health Maintenance Insurance [facility] C[place] ADULT Care Teams Student Success Counselor Relationship Specialty Start Date End Date Allyson Farooq MD [address] [place] [phone] PCP - General Family Medicine 07/23/20
--- OUTSIDE RECORDS SUMMARY | 2024-09-18 08:56 | XMS_ITS | Encounter Summary ---
Author Organization [employer] Address [address] [facility] 7t [place] [address] Care Team Providers Care Real Estate Teacher Name Role Phone Allyson Farooq MD Primary Care Provider [phone] Reason for Visit * Reason Onset Date Comments Nurse Triage 01/03/2024 Encounter Details Date Type Department Care Team ([facility] st Contact Info) Description 01/03/2024 Telephone [facility] [address] [place] [address] Allyson Farooq MD [address] [place], [place] [phone] Nurse Triage Social History Tobacco Use Types Packs/Day Years [...] encounter Miscellaneous Notes * Telephone Encounter - Aspen Thacker RN - 01/08/2024 4:21 PM EDT TC placed to pt [phone] in regards to below message. Pt reports she is just looking for a physical. RN informed pt a message would be sent to MA's to schedule physical when theres appt availability. Pt verbalized understanding however is requesting an appt ROSY d/t to urine concerns. Pt reports she has been experiencing dark urine x couple of months . Pt reports also with strong odor and abnormal yellow discharge since 01/04 when menstrual period ended. Pt also reports 1 new sexual partner and denies being tested for any STI's since new partner. Pt denies fevers or abdominal pain at this time. RN scheduled pt for next available on 01/15 at 9:30am as overbook (okay per PCP). Pt advised for worsening s/s to seek WIC. Pt verbalized understanding. Pt to f/u PRN. * Telephone Encounter - Fadumo Samson LPN - 01/03/2024 4:35 PM EDT Triage call returned to patient at listed number. No illness or medical concern identified at time of intake. Patient aware that I am a Nurse returning her call but patient unwilling to discuss her concerns. Patient denied illness, vaginal symptoms assault or abuse. Patient reports only that she wants to meet with her Primary Doctor to discuss some things like if im up to date on vaccines etc . Patient unwilling to address concerns with this nurse. Patient advised no PCP appts at this time. Team tasked to update PCP and follow with patient as indicated. Patient aware that it is end of day and will be contacted tomorrow. Protocol Used: No Protocol Available (Adult) Protocol-Based Disposition: See in Office or Video Visit within 2 Weeks Video visit not offered Positive Triage Questions: * Nursing judgment * Patient's symptoms are safe to treat at home per nursing judgment * All higher-acuity triage questions were negative Care Advice Discussed: * Reasons To Call Back - You become worse * Telephone Encounter - Coty Arreola - 01/03/2024 3:25 PM EDT Tc from pt requesting a call back from a nurse, no further details provided, stated is personal. documented in this encounter Plan of Treatment Not on file documented as of this encounter Visit Diagnoses Not on filedocumented in this encounter Care Teams Real Estate Teacher Relationship Specialty Start Date End Date Allyson Farooq MD [address] [place] [address] PCP - General Family Medicine 07/23/20 documented as of this encounter
--- OUTSIDE RECORDS SUMMARY | 2024-09-18 08:56 | XMS_ITS | Encounter Summary ---
Author Organization [employer] Address [address] [facility] 7t [place] [address] Care Team Providers Care Collector Of Port Name Role Phone Allyson Farooq MD Primary Care Provider [phone] Reason for Visit * Reason Onset Date Comments Nurse Triage 04/04/2023 Encounter Details Date Type Department Care Team ([facility] st Contact Info) Description 04/04/2023 Telephone [facility] [address] [place] [address] Allyson Farooq MD [address] [place], [place] [phone] Nurse Triage Social History Tobacco Use Types [...] encounter Miscellaneous Notes * Telephone Encounter - Lianet Navarro RN - 04/04/2023 9:34 AM EST Triage call Pt reports foul Vaginal odor since January. Pt also has some pelvic pain at times anditchiness. Pt is neg for fever, rash. Pt has not tried OTC products. Pt has changed soap to dove and is not using perfumed hygiene products. Home care reviewed and Pt agrees. Apt with FERMIN Hartman 04/05/23 @ 1000am . Insurance is verified as active prior to booking. Protocol Used: Vaginal Symptoms (Adult) Protocol-Based Disposition: See in Office or Video Visit within 3 Days Positive Triage Question: * Vaginal odor (bad smell) not improved > 3 days following Care Advice * All higher-acuity triage questions were negative Care Advice Discussed: * Reassurance and Education - Mild Vaginal Itching * Reassurance and Education - Vaginal Odor * Causes of Vaginal Odor: * Cleansing * Genital Hygiene * Note to Triager - Possible Forgotten Tampon * How to Remove a Tampon Stuck in the Vagina * Expected Course * Reasons To Call Back - Rash or severe itching - Yellow or green vaginal discharge - Discharge smells bad - You become worse * Telephone Encounter - Suzanna Alvarez - 04/04/2023 9:02 AM EST Symptom: Vaginal Symptoms - Not Bleeding Outcome: Schedule an urgent appointment (within 4 hours) or talk to a nurse or provider soon Reason: Foul-smelling vaginal discharge The caller accepted this outcome Please contact pt at [phone] documented in this encounter Plan of Treatment Not on file documented as of this encounter Visit Diagnoses Not on filedocumented in this encounter Care Teams Collector Of Port Relationship Specialty Start Date End Date Allyson Farooq MD [address] [place] [address] PCP - General Family Medicine 07/23/20 documented as of this encounter
[2024-09-18 09:04] VITALS: BP 106/66; PULSE 74; RESP 16; TEMP 36.4; O2SAT 100
== END 2024-09-18 09:12 | disposition home or self-care (01) ==
PROVIDERS: Emergency Provider Emergency Medicine
DX: S93.402A Sprain of unspecified ligament of left ankle, initial encounter (principal); X58.XXXA Exposure to other specified factors, initial encounter; Y93.9 Activity, unspecified; Y92.9 Unspecified place or not applicable; Y99.8 Other external cause status
CPT/HCPCS: 73610; 99283

== ENCOUNTER → 2024-09-18 08:25 | Outpatient (BNV) | payer MEDICAID, SELFPAY | PROVIDERS: Emergency Provider Emergency Medicine; Visit Provider Radiology Diagnostic Radiology | DX: M25.572 Pain in left ankle and joints of left foot (principal) | CPT/HCPCS: 73610 ==

== ENCOUNTER 2025-05-11 18:58 | Outpatient (REF) | payer MEDICAID, SELFPAY ==
--- OUTSIDE RECORDS SUMMARY | 2025-05-11 13:15 | XMS_ITS | Encounter Summary ---
Author Organization [employer] Address 75 [facility] 7t [place] [address] Care Team Providers Care Flame Brazing Machine Operator Name Role Phone Allyson Farooq MD Primary Care Provider [phone] Reason for Visit * Reason Comments vaginal symtoms Encounter Details Date Type Department Care Team ([facility] st Contact Info) Description 05/11/2025 1:15 PM EST Office Visit [facility] [address] [place], [place] [phone] Lynsey Hawk ANP [address] [place], [place] [phone] Vaginal discharge (Primary Dx); Pelvic pain Social History Tobacco Use Types Packs/Day Years Used Date Smoking Tobacco: Former Passive Smoke Exposure: Never Smokeless Tobacco: Never Alcohol Use Standard Drinks/Week Comments Not Currently 0 (1 standard drink = 0.6 oz pur e alcohol) Alcohol Answer Date Recorded How often do you have a drink containing alcohol ? 0 05/11/2025 How many drinks containing a lcohol do you have on a typical day when you are drinking? 0 05/11/2025 How often do you have six or more drinks on one occasion? 0 05/11/2025 Depression Answer Date Recorded Patient Health Questionnaire-9 [...] PM EDT documented as of this encounter Last Filed Vital Signs Vital Sign Reading Time Taken Comments Blood Pressure 100/60 05/11/2025 1:38 PM EST Pulse 83 05/11/2025 1:38 PM EST Temperature 36.3 C (97.4 F) 05/11/2025 1:38 PM EST Respiratory Rate 16 05/11/2025 1:38 PM EST Oxygen Saturation 99% 05/11/2025 1:38 PM EST Inhaled Oxygen Concentration - - Weight 45.8 kg (101 lb) 05/11/2025 1:38 PM EST Height 160 cm (5' 3 ) 05/11/2025 1:38 PM EST Body Mass Index 17.89 05/11/2025 1:38 PM EST documented in this encounter Plan of Treatment Scheduled Orders Name Type Priority Associated Diagnoses Orde r Schedule Bacterial Vaginosis Panel Microbiology Routine Vaginal discharge Ordered: 05/11/2025 Chlamydia/N. Gonorrhoeae RNA, TMA, Vagina Microbiology Routine Vaginal discharge Ordered: 05/11/2025 documented as of this encounter Procedures Procedure Name Priority Date/Time Associated Diagnosis Comments POCT URINALYSIS DIPSTICK Routine 05/11/2025 1:58 PM EST Vaginal discharge documented in this encounter Results * POCT Urinalysis (05/11/2025 1:58 PM EST) Color, UA Yellow Clarity, UA Clear Glucose, UA Negative Bilirubin, UA Trace Comment:small Ketones, UA Negative Spec Grav, UA 1.030 Blood, UA Negative Negative, None Detected pH, UA 6.0 Protein, UA Trace Comment:30 mg/dl Urobilinogen, UA 0.2 Leukocytes, UA Negative Negative, Rare, Trace, 1+ (17), 2+ (35), 3+ (70), Trace (15) Nitrite, UA Negative Negative, None Detected QC Media Lot # [id number] Lot# Expiration Date , Urine (Urine, Random) 05/11/2025 1:58 PM EST [facility] POINT OF CARE TEST ENTER/EDIT OR DERABLES Final Result documented in this encounter Visit Diagnoses Diagnosis Vaginal discharge- Primary Leukorrhea, not specified as infective Pelvic pain documented in this encounter Additional Health Concerns Assessment Noted Time PHQ-9 Depression Total Score: 20 07/16/ 025 3:13 PM EST documented as of this encounter Care Teams Flame Brazing Machine Operator Relationship Specialty Start Date End Date Allyson Farooq MD [address] [place] [address] PCP - General Family Medicine 07/23/20 documented as of this encounter
--- OUTSIDE RECORDS SUMMARY | 2025-05-11 19:07 | XMS_ITS | Encounter Summary ---
Author Organization [employer] Address [address] [facility] 7t [place] [address] Care Team Providers Care Ruling Machine Operator Name Role Phone Allyson Farooq MD Primary Care Provider [phone] Reason for Visit * Reason Onset Date Comments Nurse Triage 01/03/2024 Encounter Details Date Type Department Care Team ([facility] st Contact Info) Description 01/03/2024 Telephone [facility] [address] [place], [place] [phone] Allyson Farooq MD [address] [place] [address] Nurse Triage Social History Tobacco Use Types Packs/Day Years Used Date Smoking Tobacco: Former Passive Smoke Exposure: Never Smokeless Tobacco: Never Alcohol Use Standard Drinks/Week Comments Not Currently 0 (1 standard drink = 0.6 oz pur e alcohol) Housing Stability Answer Date Recorded What is your housing situation today? I have tameragreg ricardo 03/13/[address] you [...] 4:21 PM EDT TC placed to pt [phone] in regards to below message. Pt reports [...] on filedocumented in this encounter Care Teams Ruling Machine Operator Relationship Specialty Start Date End Date Allyson Farooq MD [address] [place] [id number] PCP - General Family Medicine 07/23/20 documented as of this encounter
--- OUTSIDE RECORDS SUMMARY | 2025-05-11 19:07 | XMS_ITS | Encounter Summary ---
Author Organization [employer] Address [address] [facility] [address] 7t [place] [address] Care Team Providers Care Manager Of Recruiting Name Role Phone Allyson Farooq MD Primary Care Provider [phone] Reason for Visit * Reason Onset Date Comments Nurse Triage 04/04/2023 Encounter Details Date Type Department Care Team ([facility] st Contact Info) Description 04/04/2023 Telephone [facility] [address] [place], [place] [phone] Allyson Farooq MD [address] [place] [address] Nurse Triage Social History Tobacco Use Types [...] accepted this outcome Please contact pt at [phone] documented in this encounter Plan of Treatment Not on file documented as of this encounter Visit Diagnoses Not on filedocumented in this encounter Care Teams Manager Of Recruiting Relationship Specialty Start Date End Date Allyson Farooq MD [address] [place] [address] PCP - General Family Medicine 07/23/20 documented as of this encounter
--- OUTSIDE RECORDS SUMMARY | 2025-05-11 19:07 | XMS_ITS | Clinical Summary ---
Author Organization [employer] Address [address] [facility] [address] 7[address] [place] [address] Care Team Providers Care Staffing Branch Manager Name Role Phone Allyson Farooq MD Primary Care Provider [phone] Allergies Active Allergy Reactions Criticality Noted Date Comments Corylus 06/23/2019 Peanut-Containing Drug Products 08/20 Medications * This document contains information received from the source organization and may not represent a complete record from that organization. EPINEPHrine (EpiPen 2-Juan José) 0.3 MG/0.3ML injection syringe Use as directed for anaphylaxis prn 8 Active fluconazole (Diflucan) 150 MG tabletIndicatio ns:Vaginal discharge Take 1 tablet (150 mg) by mouth 1 (one) time for 1 dose. 1 tablet 05/11/2025 2:31 PM EST 05/12/20 25 Active Active Problems Problem Noted Date Diagnosed Date [...] appointments. Pt would like to reconnect with [facility] psych provider to continue with services. She is currently seeing a therapist in [facility]. Assessment & Plan (07/16/2024 4:21 PM EST): [...] nevus 07/31/2014 Developmental academic disorder 11/25/2012 Encounters Date Type Department Care Team Description 05/11/2025 1:15 PM EST Office Visit [facility] MEDICINE [address] [place] [address] Lynsey Hawk ANP Vaginal discharge (Primary Dx); Pelvic pain 05/11/2025 Travel 05/11/2025 Telephone [facility]INE [address] [place], [place] [phone] Allyson Farooq MD Nurse Triage from Last 3 Months Immunizations Immunization Administration Dates Next Due DTaP 03/01/2004, 2,05/28/2000,03/21,01/25/2000 [...] the past 12 months, has t he [employer], gas, oil or water company threatened to [...] Mass Index 17.89 05/11/2025 1:38 PM EST Plan of Treatment Health Maintenance Due Date Last Done Comments Family Planning (PISQ) 11/13/2014 Pneumococcal Vaccine: Pediatrics (0 to 5 Years) and At-Risk Patients (6 to 49) Years (1 of 2 - PCV) 11/13/2018 02/05/2001, 05/28/2000, 03/21/2000, Additional history exists DTaP/Tdap/Td Vaccines (7 - Td or Tdap) 03/13/2021 03/13/2011, 03/01/2004, 03/24/2002, Additional history exists Dental Oral Exam 11/04/2024 05/05/2024 Dental Prophylaxis 11/04/2024 05/05/2024, 08/04/2022 Depression Monitoring 01/13/2025 07/16/2024, 025 COVID-19 Vaccine ( season) 2025 Influenza Vaccine (#1) 2025 , 07/03/2014, 04/14/2013, Additional history exists SDOH Screening 04/08/2025 04/08/2024 Dental X-Ray: Bitewings 05/06/2025 05/05/2024, 08/04 Disability Screening 08/13/2025 08/13/2024 Alcohol/Substance Use Screening 05/11/2026 05/11/2025 Tobacco Screening 05/11/2026 05/11/2025 Pap Smear 04/04/2027 04/04/2024, 03/01/2022 Dental X-Ray: Full Mouth 06/19/2027 06/18/2024, 07/19 Zoster Vaccines (1 of 2) 11/13/2049 RSV Patients and Patients Aged 60 years or older (1 - 1-dose 75+ series) 11/13/2074 Hepatitis B Vaccines Completed 08/24/2000, 1999, 1999 HIB Vaccines Completed 02/05/2001, 12/2000, 03/21/2000, Additional history exists IPV Vaccines Completed 03/01/2004, 08/2001, 03/21/2000, Additional history exists HPV Vaccines Completed 07/03/2014, 0 12/2012, 03/06/2011 Meningococcal Vaccine Completed 01/12/2016, 011 Hepatitis A Vaccines Completed 07/26/2016, 01/12/20 16 HIV Screening Completed 06/23/2019 Hepatitis C Screening Completed 06/23/2019 Meningococcal B Vaccine Aged Out No l onger eligible based on patient's age to complete this topic RSV under 20 months Aged Out No longe r eligible based on patient's age to complete this topic Rotavirus Vaccines Aged Out No longer eligible based on patient's age to complete this topic Procedures Procedure Name Priority Date/Time Associated Diagnosis Comments POCT URINALYSIS DIPSTICK Routine 05/11/2025 1:58 PM EST Vaginal discharge Full PROPHYLAXIS - ADULT Routine 05/05/2024 9:00 AM EST BITEWINGS - 4 RADIOGRAPHIC IMAGES Routine 05/05/2024 9:00 AM EST PERIODIC ORAL EVALUATION - ESTABLISHED PATIENT Routine 05/05/2024 9:00 AM EST PAP SMEAR Routine 04/04/2024 4:35 PM EST PANORAMIC RADIOGRAPHIC IMAGE Routine 08/04/2022 3:00 PM EDT [facility] HISTORICAL HEPATITIS C ANTIBODY RFLX Routine 06/23/2019 10:25 AM EST [facility] HISTORICAL HIV AB/AG Routine 06/23/2019 10:25 AM EST from Last 3 Months or Most Recently Relevant to Health Maintenance Results * POCT Urinalysis (05/11/2025 1:58 PM [...] Media Lot # [id number] Lot# Expiration Date [id number] Urine (Urine, Random) 05/11/2025 1:58 PM EST [facility] POINT OF CARE TEST ENTER/EDIT OR DERABLES Final Result * Pap Smear (04/04/2024 4:35 PM EST) 04/04/2024 4:35 PM EST 04/07/2024 9:25 AM EST Narrative [facility] - 04/23/2024 7:49 AM EST ----- ------- Name: Guille Velásquez Age/Sex: 23/ : 2000 Unit#: [id number] Attend Dr: Allyson Farooq Re04/04/24 Status: [facility] REF Location: [facility] Disch: ----- ------- SPEC : [id number] RECD: 04/07/24 STATUS: LUCA WHELANBoby NUM: [id number] RYDER: 04/04/[address] [facility] [address]: Allyson Farooq ENTERED: 04/07/24-1005 SP TYPE: Pap Smr OTHR DR: ORDERED: Pap Smear Interpretation Satisfactory for evaluation. Negative for intraepithelial lesion or malignancy. Scant cellularity. Clinical Information LMP: 04/03/2024 Previous PAP test: Unknown date/findings Other history:GOPO Material Received ThinPrep-Cervical ----- ------- Signed (signature on file) CHANEL Kang (ASCP) 04/23/24 0749 ----- ------- END OF REPORT Allyson Farooq MD LAB CYTOLOGY ORDERABLES Final Result [facility] [address] [place] [address] [phone] * HEPATITIS C ANTIBODY RFLX (06/23/2019 10:25 AM EST) Pathologist [facility] HEPATITIS C ANTIBODY NONREACTIVE NONREACTIVE [facility] Comment: Antibodies to HCV not detected; does not exclude early acute HCV infection. 06/23/2019 10:2 5 AM EST Melody Wilcox DO HISTORICAL/NON ORDERABLE LABS Final Result Performing Organization Address [facility] Co de Phone Number [facility] [address] * HIV AB/AG (06/23/2019 10:25 AM EST) HIV AG/AB NONREACTIVE [facility] Comment: HIV-1 p24 Ag and/or HIV-1/HIV-2 Ab not detected. A test result that is nonreactive does not exclude the possibility of exposure to or infection with HIV-1 and/or HIV-2. Nonreactive results in this assay for individuals with prior exposure to HIV-1 and/or HIV-2 may be due to antigen and antibody levels that are below the limit of detection of this assay. The [employer] HIV Ag/Ab Combo assay result and supplemental assay results should be interpreted in conjunction with the patient's clinical presentation, history and other laboratory results. If the results are inconsistent with clinical evidence, additional testing is suggested to confirm the result. 06/23/2019 10:2 5 AM EST Melody Wilcox DO HISTORICAL/NON ORDERABLE LABS Final Result [facility] [address] from Last 3 Months or Most Recently Relevant to Health Maintenance Insurance [facility] C3 DENTAL-[facility] MEDICAID STAND ADULT Care Teams Staffing Branch Manager Relationship Specialty Start Date End Date Allyson Farooq MD [address] [place] [address] PCP - General Family Medicine 07/23/20
--- OUTSIDE RECORDS SUMMARY | 2025-05-11 19:07 | XMS_ITS | Encounter Summary ---
Author Organization [employer] Address [address] [facility] [address] 7t [place] [address] Care Team Providers Care Excelsior Machine Operator Name Role Phone Allyson Farooq MD Primary Care Provider [phone] Encounter Details Date Type Department Care Team (Latest Contact Info) Description 05/11/2025 Travel Social History Tobacco Use Types Packs/Day Years [...] 10:22 AM EDT Sexual Orientation Straight 08/04/2022 3 :24 PM EDT documented as of this encounter Plan of Treatment Not on file documented as of this encounter Visit Diagnoses Not on filedocumented in this encounter Additional Health Concerns Assessment Noted Time PHQ-9 Depression Total Score: 20 025 3:13 PM EST documented as of this encounter Care Teams Excelsior Machine Operator Relationship Specialty Start Date End Date Allyson Farooq MD [address] [place] [address] PCP - General Family Medicine 07/23/20 documented as of this encounter
--- OUTSIDE RECORDS SUMMARY | 2025-05-11 19:07 | XMS_ITS | Encounter Summary ---
Author Organization [employer] Address [address] [facility] [address] 7[address] [place] [address] Care Team Providers Care Stereotyper Name Role Phone Allyson Farooq MD Primary Care Provider [phone] Reason for Visit * Reason Onset Date Comments Nurse Triage 05/11/2025 Encounter Details Date Type Department Care Team ([facility] st Contact Info) Description 05/11/2025 Telephone [facility] MEDICINE [address] [place], [place] [phone] Allyson Farooq MD [address] [place] [address] Nurse Triage Social History Tobacco Use Types [...] is your housing situation today? I have tmaera ricardo 04/08/[address] you [...] encounter Miscellaneous Notes * Telephone Encounter - Latosha Garcia RN - 05/11/2025 9:27 AM EST TC to pt to triage for vaginal symptoms. Pt states that for the last month or so she has been experiencing worsening itchiness in her vaginal area, yellowish discharge and oliguria. Pt states symptoms come and go. Pt also experiencing bleeding at times outside of menstruation. States she has tried cranberry juice and lots of water with no effect. Denies pain with urination. Pt has not been treated recently for any infection. No new meds or soaps. Pt requesting appt in office today. Nurse offered to come to [facility] to be seen with female provider. Pt agrees to appt with Lynsey Hawk at 1:15 pm on 05/11/25. Protocol Used: Vaginal Discharge (Adult) Protocol-Based Disposition: See in Office or Video Visit Today Positive Triage Questions: * Patient wants to be seen * Bad smelling vaginal discharge * Abnormal color vaginal discharge (i.e., yellow, green, harper) * Symptoms of a yeast infection (i.e., itchy, white discharge, not bad smelling) and not improved > 3 days following Care Advice * All higher-acuity triage questions were negative. Care Advice Discussed: * Reasons To Call Back - Fever or abdomen pain occur - You become worse * Telephone Encounter - Donovan Sharmaiz - 05/11/2025 8:54 AM EST Symptom: Vaginal Symptoms - Not Bleeding Outcome: Schedule an urgent appointment (within 4 hours) or talk to a nurse or provider soon Reason: Foul-smelling vaginal discharge, itchiness, yellow discharge. The caller accepted this outcome. Contact pt at [phone] documented in this encounter Plan of Treatment Not on file documented as of this encounter Visit Diagnoses Not on filedocumented in this encounter Additional Health Concerns Assessment Noted Time PHQ-9 Depression Total Score: 20 025 3:13 PM EST documented as of this encounter Care Teams Stereotyper Relationship Specialty Start Date End Date Allyson Farooq MD [address] [place] [address] PCP - General Family Medicine 07/23/20 documented as of this encounter
--- OUTSIDE RECORDS SUMMARY | 2025-05-11 19:07 | XMS_ITS | Encounter Summary ---
Author Organization [facility] Address [address] [place] [address] 7t [place] [address] Care Team Providers Care Teenage Program Director Name Role Phone Allyson Farooq MD Primary Care Provider Encounter Details Date Type Department Care Team (Latest Contact Info) Description 09/01/2021 Abstract [facility] CONVERSIONS Dental, Provider, DDS Social History Tobacco [...] on filedocumented in this encounter Care Teams Teenage Program Director Relationship Specialty Start Date End Date Allyson Farooq MD [address] [place] [address] PCP - General Family Medicine 07/23/20 documented as of this encounter
--- OUTSIDE RECORDS SUMMARY | 2025-05-11 19:07 | XMS_ITS | Encounter Summary ---
Author Organization [employer] Address [address] [facility] [address] 7[address] [place] [address] Care Team Providers Care Environmental Health And Safety Manager Name Role Phone Allyson Farooq MD Primary Care Provider [phone] Reason for Visit * Reason Onset Date Comments rs appt 03/13/2023 Encounter Details Date Type Department Care Team ([facility] st Contact Info) Description 03/13/2023 Telephone [facility] ADULT D[facility]AL [address] [place] [address] Soto Keith, DMD [address] [place] [address] rs appt Social History Tobacco Use Types [...] not she is willing to take a rs day. Please reach out to the patient DR documented in this encounter Plan of Treatment Not on file documented as of this encounter Visit Diagnoses Not on filedocumented in this encounter Care Teams Environmental Health And Safety Manager Relationship Specialty Start Date End Date Allyson Farooq MD [address] [place] [address] PCP - General Family Medicine 07/23/20 documented as of this encounter
[2025-05-11 22:34] LABS: Bacterial Vaginosis PCR NEGATIVE (Negative); Candida Group PCR NOT DETECTED (Not Detect); Candida glab krusei PCR NOT DETECTED (Not Detect); Trichomonas vaginalis PCR NOT DETECTED (Not Detect)
[2025-05-12 00:18] LABS: CT PCR NOT DETECTED (Not Detect.); NG PCR NOT DETECTED (Not Detect.)
== END 2025-05-11 18:59 | disposition home or self-care (01) ==
LOC: HO.LNP 18:58
PROVIDERS: Visit Provider Nurse Practitioner Primary Care
DX: N89.8 Other specified noninflammatory disorders of vagina (principal); Z20.2 Contact with and (suspected) exposure to infections with a predominantly sexual mode of transmission
CPT/HCPCS: 81515; 87491; 87591